=== PATIENT | female | born 1995 | race Caucasian/White ===

== ENCOUNTER 2022-04-22 00:48 | Day surgery (SDC) | payer BC, SELFPAY ==
[2022-04-17 13:02] VITALS: BMI 42.3
--- NOTE | 2022-04-19 14:44 | PM.HPGS ---
History of Present Illness History of Present Illness Consent: Risks, benefits, and alternatives have been discussed and questions answered. Patient agrees to proceed with procedure. Chief complaint: vomiting, epigastric pain Narrative: Alva Espinoza is a 26 year old female with refractory nausea and vomiting as well as diarrhea that began a few weeks ago.? She was seen in the emergency room of [facility] on March 22.? She had also complained of having upper abdominal pain at that time.? Investigation was done with lab work all of which was normal except for an elevated white blood count.? CT scan of the abdomen without contrast was entirely normal.? While there she was given droperidol as well as Zofran and sent home with a prescription for promethazine.? Apparently the next day she went to another hospital emergency room in [place] with identical symptoms.? There she was also treated with antiemetics including, again droperidol and then Compazine.? Lab work [place] [id number] scan was done that was negative.? On both occasions history revealed that she has been a daily user of cannabis for about 10 years. She states that she only had two really severe attacks recent which happened to be the reason she went to emergency rooms.? These will happen once or twice a year. Review of Systems Review of Systems: All systems reviewed & are unremarkable except as noted in HPI and below PMFSH Past Medical History Medical History History of anxiety History of depression Hx of bronchitis Hx of endometriosis Hx of gastroesophageal reflux (GERD) Surgical History Surgical History History of removal of ovarian cyst Hx of tonsillectomy Family History Family History Mother Depression Social History Social History Smoking status: Former smoker Tobacco type: cigarettes Alcohol intake: former Substance use: current Substance use type: marijuana Last use: Daily Living arrangements: with family Spiritual care concerns: No Meds Home Medications and Allergies Home Medications Medication Instructions Recorded Confirmed Type escitalopram oxalate 20 mg tablet 20 mg PO DAILY 03/29/22 04/22/22 History norethindrone 1 mg-ethinyl 1 tablet PO DAILY 03/29/22 04/22/22 History estradiol 20 mcg (24)-iron 75 mg (4) tablet (Blisovi 24 Fe) omeprazole 40 mg capsule,delayed 40 mg PO DAILY 03/29/22 04/22/22 History release oxybutynin chloride 5 mg 5 mg PO DAILY 03/29/22 04/22/22 History tablet,extended release 24 hr Allergies Allergy/AdvReac Type Severity Reaction Status Date / Time Penicillins Allergy Mild Unknown Verified 04/22/22 12:38 Exam Const: General: alert Orientation/consciousness: patient oriented x3 Resp: Auscultation: clear to auscultation bilaterally Cardio: Rhythm: regular rhythm GI: GI Palp: Yes Soft to palpation and No Tenderness to palpation present (GI) Neuro: General: patient oriented x3 Assessment and Plan Assessment and plan (1) Nausea and vomiting: Code(s): R11.2 - Nausea with vomiting, unspecified Status: Acute Assessment and Plan: EGD with possible biopsy or dilatation or cautery.
[2022-04-22 12:39] VITALS: BP 130/72; PULSE 78; RESP 18; TEMP 36.3; O2SAT 98
[2022-04-22] MEDS: LACTATED RINGERS 1,000 ML 150 ML IV CONT (12:51)
--- NOTE | 2022-04-22 13:08 | P.PNAN_ITS ---
Anes - Initial Pre Proc Eval Procedure: Operation Date: 04/22/22 13:45 Proposed Procedures p Esophagogastroduodenoscopy - Ady Miranda MD Date/Time: 04/22/22 13:08 Surgeon: Ady Miranda MD Pre Op Diagnosis: vomiting, epigastric pain Patient Data Age: 26 Gender: F Height: 1.7 m Weight: 123.7 kg Last Vital Signs Temp 36.3 C L 04/22/22 12:39 Pulse 78 04/22/22 12:39 Resp 18 04/22/22 12:39 BP 130/72 04/22/22 12:39 Pulse Ox 98 04/22/22 12:39 O2 Del Method Room Air 04/22/22 12:39 Allergies Allergy/AdvReac Type Severity Reaction Status Date / Time Penicillins Allergy Mild Unknown Verified 04/22/22 12:38 Home Medications Medication Instructions Recorded Confirmed Type escitalopram oxalate 20 mg tablet 20 mg PO DAILY 03/29/22 04/22/22 History norethindrone 1 mg-ethinyl 1 tablet PO DAILY 03/29/22 04/22/22 History estradiol 20 mcg (24)-iron 75 mg (4) tablet (Blisovi 24 Fe) omeprazole 40 mg capsule,delayed 40 mg PO DAILY 03/29/22 04/22/22 History release oxybutynin chloride 5 mg 5 mg PO DAILY 03/29/22 04/22/22 History tablet,extended release 24 hr Patient hx anesthesia problems: none Family hx anesthesia problems: none Results Review: All pre-operative results and documents have been reviewed as part of the pre- operative evaluation. [facility] Past Medical History Medical History History of anxiety History of depression Hx of bronchitis Hx of endometriosis Hx of gastroesophageal reflux (GERD) Surgical History Surgical History History of removal of ovarian cyst Hx of tonsillectomy Family History Family History Mother Depression Social History Social History Smoking status: Former smoker Tobacco type: cigarettes Alcohol intake: former Substance use: current Substance use type: marijuana Last use: Daily Living arrangements: with family Spiritual care concerns: No Anes - Eval Final PreProcedure Day of Procedure 04/22/22 13:08 Patient weight: morbidly obese Heart: regular rate and rhythm Lungs: clear to auscultation Airway: Mallampati scale class II Last oral intake: >/= 8 hours ASA classification: III Anesthetic plan: proceed Anesthesia type and monitoring: general GIVS and standard monitoring Results Review: All pre-operative results and documents have been reviewed as part of the pre- operative evaluation. Informed Consent: The patient's anesthetic plan and its attendant risks and benefits were discussed with the patient/family/POA. Questions were solicited and answers provided to the satisfaction of the patient/family/POA.
[2022-04-22 13:46] VITALS: BP 137/93; PULSE 86; RESP 18; O2SAT 98
[2022-04-22 13:56] VITALS: BP 129/54; PULSE 82; RESP 18; O2SAT 99
[2022-04-22 14:06] VITALS: BP 113/62; PULSE 62; RESP 20; O2SAT 100
== END 2022-04-22 14:13 | disposition home or self-care (01) ==
PROVIDERS: PCP Family Medicine; Visit Provider Internal Medicine Gastroenterology
PROC: 0DJ08ZZ Inspection of Upper Intestinal Tract, Via Natural or Artificial Opening Endoscopic (ICD-10-PCS; CPT 43235; principal; 2022-04-22 13:45)
DX: R10.13 Epigastric pain (principal); R11.2 Nausea with vomiting, unspecified; K21.00 Gastro-esophageal reflux disease with esophagitis, without bleeding; F41.9 Anxiety disorder, unspecified; F32.A Depression, unspecified; N80.9 Endometriosis, unspecified; Z87.891 Personal history of nicotine dependence; F12.90 Cannabis use, unspecified, uncomplicated; E66.01 Morbid (severe) obesity due to excess calories; Z68.41 Body mass index [BMI] 40.0-44.9, adult; R19.7 Diarrhea, unspecified
CPT/HCPCS: 43239; 87081; 88305; J2704; J7120